=== PATIENT | female | born 1955 | race Caucasian/White ===

== ENCOUNTER → 2019-06-01 16:26 | Outpatient (CLI) | payer OTHER, SELFPAY ==
--- NOTE | ~2019-06-01 | XR_ITS ---
XR knee RT 3V 06/01/2019 17:45 INDICATION: Right knee pain PROCEDURE: 3 views right knee COMPARISON: No prior studies for comparison. FINDINGS: Fracture, dislocation or subluxation is not identified. No significant joint effusion. The soft tissues appear within normal limits. No foreign bodies are identified. IMPRESSION: 1: NO ACUTE BONE OR JOINT ABNORMALITY IDENTIFIED. Reviewed, dictated and finalized at location A. ECTOR METAL CAN
== END ==
PROVIDERS: PCP Internal Medicine; Visit Provider Internal Medicine
DX: M25.561 Pain in right knee (principal)
CPT/HCPCS: 73562

== ENCOUNTER 2019-06-02 01:05 | Day surgery (SDC) | payer OTHER, SELFPAY ==
[2019-06-01 16:23] VITALS: BMI 28.8
--- NOTE | 2019-06-02 08:38 | SUR.PREOP ---
ARRIVES AMBULATORY TO [facility] 4 W/ AT SIDE FOR SCHEDULED LHC W/ DR. LUNA FOR 1000. ORIENTED TO ROOM, PLAN OF CARE, PROCEDURE. QUESTIONS ANSWERED. ANXIOUS. REASSURANCE GIVEN. IV STARTED, LABS DRAWN AND SENT, VS OBTAINED, CONSENT SIGNED, GROIN PREP COMPLETED. PT. STATES SHE IS INTERESTED IN RADIAL APPROACH [facility]. DORCAS'S TEST COMPLETED BY SHIELA HOBSON RN USING R. UPPER EXTREMITY; STRONG RADIAL AND ULNAR PULSES PALPATED. WILL MONITOR.
[2019-06-02 09:00] VITALS: BP 145/87; PULSE 77; RESP 20; TEMP 36.8; O2SAT 99
[2019-06-02 09:11] LABS: Basophils Absolute Auto 0.1 K/mm3 (0.0-0.1); Basophils Percent Auto 0.6 % (0.2-1.2); Eosinophils Absolute Auto 0.1 K/mm3 (0-0.3); Eosinophils Percent Auto 1.5 % (0-4.4); Hematocrit 44.3 % (37.0-47.0); Hemoglobin 14.3 g/dL (12.0-15.0); Immature Granulocyte Absolute 0.07 K/mm3 (0.00-0.031); Immature Granulocyte Percent A 0.8 % (0-0.5); Lymphocytes Absolute Auto 2.49 K/mm3 (0.9-3.2); Lymphocytes Percent Auto 28.9 % (18.3-44.2); Mean Corpuscular HGB Conc 32.3 g/dl (32-36); Mean Corpuscular Hemoglobin 27.7 pg (26-34); Mean Corpuscular Volume 85.9 fl (80-100); Mean Platelet Volume 11.1 fl (7.4-10.4); Monocytes Absolute Auto 0.7 K/mm3 (0.1-0.6); Neutrophils Absolute Auto 5.2 K/mm3 (1.3-6.7); Neutrophils Percent Auto 60.2 % (45.5-73.1); Platelet Count Result 245 k/mm3 (150-375); Red Blood Count 5.16 M/mm3 (4.2-5.4); Red Cell Distribution Width 13.9 % (11.5-14.5); White Blood Count 8.6 K/mm3 (4.5-10.0)
[2019-06-02 09:22] LABS: Blood Urea Nitrogen 20 mg/dL (7-17); Calcium 9.9 mg/dL (8.4-10.2); Carbon Dioxide 29 mmol/L (22-30); Chloride 97 mmol/L (98-107); Estimated CRCL calculation 77 ml/min; Estimated Glomerular Filt Rate > 60; Glucose 120 mg/dL (65-105); Potassium 4.3 mmol/L (3.4-5.0); Sodium 135 mmol/L (137-145)
[2019-06-02 09:25] VITALS: BMI 28.3
--- NOTE | 2019-06-02 10:38 | WPDMODSED ---
Moderate Sedation Note-Pt Data Patient Data Allergies Allergy/AdvReac Type Severity Reaction Status Date / Time morphine Allergy Intermediate Migraine Verified 04/04/19 09:12 Home Medications Medication Instructions Recorded Confirmed Type lisinopril 10 mg tablet 10 mg PO DAILY #30 tablet 03/11/19 06/02/19 Rx cholecalciferol (vitamin D3) 400 unit PO BID 06/01/19 06/01/19 History Current Medications: Active Medications Sodium Chloride (Normal Saline Iv) 500 mls @ 100 mls/hr IV CONT .Q5H [facility] Sedation/Anesthesia: No previous sedation/anesthesia problems (including family history). [facility] Family History Family History Mother Hypertension, Onset Age: 84 Father Family history of Parkinson's disease Patient's father is Other Family history of arthritis Family history of cardiovascular disease Social History Social History Smoking status: Never smoker Second hand tobacco smoke exposure: No Smoking end date: 05/04/79 Alcohol intake: current Mod Sed Physical Exam Physical Exam Pre Procedural Exam: Normal: Appearance, Eyes, Ears, Nose, Neck, Throat, Airway, Lungs, Heart Size, Heart Rate, Heart Rhythm, Neuro Exam, Abdomen, Liver, Kidneys, Spleen, Breasts, Genitalia, Extremities and Skin Hours since solid foods: 8 Hours since liquid intake: 8 Internal Medicine - PN: Obj Da Vital Signs Vital Signs: Vital Signs - 24 hr 06/02/19 09:00 Temperature 36.8 C Pulse Rate 77 Respiratory Rate 20 Blood Pressure 145/87 H Pulse Oximetry 99 Meds/Results Medications: Active Medications Generic Name Dose Route Start Last Admin Trade Name Freq PRN Reason Stop Dose Admin Sodium Chloride 500 mls @ 100 mls/hr 06/02/19 06:00 Normal Saline Iv IV CONT .Q5H [facility] Labs CBC & Chem 7: 06/02/19 08:54 06/02/19 08:54 Labs: Laboratory Results - last 24 hr 06/02/19 06/02/19 08:54 08:54 WBC 8.6 RBC 5.16 Hgb 14.3 Hct 44.3 MCV 85.9 MCH 27.7 MCHC 32.3 RDW 13.9 Plt Count 245 MPV 11.1 H Immature Gran % (Auto) 0.8 H Neut % (Auto) 60.2 Lymph % (Auto) 28.9 [place] % (Auto) 8.0 Eos % (Auto) 1.5 Baso % (Auto) 0.6 Lymph # (Auto) 2.49 [place] # (Auto) 0.7 H Eos # (Auto) 0.1 Baso # (Auto) 0.1 Abs Immat Gran (auto) 0.07 H Absolute Neuts (auto) 5.2 Absolute Nucleated RBC 0.0 Nucleated RBC % 0.0 Sodium 135 L Potassium 4.3 Chloride 97 L Carbon Dioxide 29 BUN 20 H Creatinine 0.70 Estim Creat Clear Calc 77 Estimated GFR > 60 Glucose 120 H Calcium 9.9 ASA Classification/Sedation ASA Classification/Sedation ASA Class: I Emergent: No Risks: Risks, benefits and alternatives explained and patient/family accepted plan for sedation. Patient re-evaluated immediately prior to sedation.
--- NOTE | 2019-06-02 10:48 | P.PCNCC_ITS ---
Cardiac Cath Procedure Note Date of procedure:: 06/02/19 Performing physician:: Kathy Martínez MD Date of service 06/02/2019 Indication:: abnormal stress test Brief clinical history:: this 64-year-old female with past medical history of hypertension who had couple episodes of chest pain. She underwent stress testing that shows ischemia in the anterior wall and therefore was brought into the [facility] [place] to define the coronary anatomy and exclude coronary artery disease as possible etiology. Procedure Procedure performed:: 1-Moderate sedation that started at 1053 am and ended at 1132 am using 7 mg of Versed and c fentanyl. The registered nurse was Emilio House 2-Selective left and right coronary angiogram. Sedation/Medication given:: Moderate sedation. Access site:: Right common femoral artery. Estimated blood loss:: 10cc Procedure note:: After informed consent patient was brought in to [facility] [place] with the was draped and prepped in usual manner. Moderate sedation was given and the right wrist was infiltrated using 1% lidocaine. Six German sheath was obtained using classic Seldinger technique. a cocktail of 5 mg of verapamil and 200 mcg of nitroglycerin given through the radial artery sheath and 3000 IV heparin.Selective left coronary angiogram was done using JL3.5 catheter with the tip of the catheter placed in the left main coronary artery. selective right coronary angiogram was done using JR4 catheter the tip of the catheter placed in right artery. Findings:: 1- left coronary artery is a large artery that divides into large LAD, large circumflex artery. Left main is Free of disease. 2- left anterior descending artery is a large artery that runs and wraps around the apex. has minimal proximally. Gives rise to a medium-sized diagonal branch that looks. 3- leftcircumflex artery is a large artery and codominant And is free of disease. Mid segment gives rise to large OM1 branch that looks. Left PDA looks unremarkable. 4- right coronary artery is is large artery and codominant free disease 5- opening arterial pressure was 112/77 and closing pressure 100/80 Conclusion:: 1- minimal coronary irregularities. 2- false-positive stress test. Assessment and Plan Additional Plan continue risk factor modification for CAD
[2019-06-02 13:00] VITALS: BP 123/73; PULSE 83; RESP 14; O2SAT 100
[2019-06-02 13:12] VITALS: BP 123/73; PULSE 77; RESP 15; O2SAT 99
[2019-06-02 13:42] VITALS: BP 121/65; PULSE 74; RESP 15; O2SAT 99
[2019-06-02 14:00] VITALS: BP 133/78; PULSE 76; RESP 16; O2SAT 99
== END 2019-06-02 15:00 | disposition home or self-care (01) ==
PROVIDERS: PCP Internal Medicine; Visit Provider Internal Medicine Cardiovascular Disease
PROC: 4A023N7 Measurement of Cardiac Sampling and Pressure, Left Heart, Percutaneous Approach (ICD-10-PCS; CPT 93452; principal; 2019-06-02 10:00)
DX: R94.39 Abnormal result of other cardiovascular function study (principal); R07.9 Chest pain, unspecified; I10 Essential (primary) hypertension
CPT/HCPCS: 36415; 80048; 85025; 93458; C1769; C1887; C1894; J1644; J2250; J3010; J7040

== ENCOUNTER → 2019-07-08 16:15 | Outpatient (CLI) | payer OTHER, SELFPAY ==
--- NOTE | ~2019-07-08 | MR_ITS ---
EXAMINATION: MR knee RT wo con DATE: 07/08/2019 16:50 INDICATION: Right knee pain. TECHNIQUE: Magnetic resonance imaging (MRI) of the right knee was performed without intravenous contr ast. Sequences included axial PD-weighted FS FSE, coronal PD-weighted FSE and PD-weighted FS FSE, sag ittal PD-weighted FSE, and sagittal T2-weighted FS FSE. COMPARISON: Right knee radiographs 06/01/2019 FINDINGS: Medial compartment: Medial meniscus is normal. There is cartilage surface irregularity of tibial condyle. There is shallo w partial-thickness cartilage loss of femoral condyle involving the central and lateral articular dana face. There are tiny marginal osteophytes. Lateral compartment: Lateral meniscus is normal. There is shallow partial-thickness cartilage loss of tibial condyle invol ving the posterior and medial articular surface. Femoral cartilage is normal. There are tiny marginal osteophytes. Patellofemoral compartment: There is shallow partial-thickness cartilage loss of patellar medial and lateral facets and median ri dge. Trochlear cartilage is normal. Ligaments and tendons: Anterior and posterior cruciate ligaments are normal. There are changes of prior sprains of medial co llateral ligament and fibular collateral ligament characterized by thickening and increased signal in tensity proximally. There is mild patellar tendinopathy. Fluid: There is a small knee joint effusion. There is trace fluid in a Hobbs's cyst. There is mild prepatell ar and superficial infrapatellar bursitis. IMPRESSION: 1. Mild tricompartmental chondrosis. 2. Small knee joint effusion. Reviewed, dictated and finalized at location A.
== END ==
PROVIDERS: Visit Provider Physician Assistant Surgical
DX: M25.461 Effusion, right knee (principal)
CPT/HCPCS: 73721

== ENCOUNTER 2020-05-31 09:05 | Outpatient (CLI) | payer OTHER, SELFPAY ==
--- NOTE | ~2020-05-31 | MM_ITS ---
EXAMINATION: MM screening [facility] BI w sandra HISTORY: Screening TECHNIQUE: Craniocaudal and mediolateral oblique 3-D tomosynthesis images were obtained and synthetic 2-D images were generated. CAD analysis was submitted and interpreted. COMPARISON: Comparison to multiple prior studies sequentially, with oldest reviewed study dated 01/2017. BREAST PARENCHYMAL COMPOSITION: The breasts are heterogeneously dense, which may obscure small masses . FINDINGS: There is a cluster of indeterminate calcifications in the central aspect of the left breast . There is no mammographic evidence for malignancy in the right breast. IMPRESSION: 1. Clustered indeterminate calcifications central aspect of the left breast. 2. Magnification views are recommended. BI-RADS Category 0: Incomplete: Needs additional imaging evaluation. Reviewed, dictated and finalized at location A. ING MACHINE OPERATOR
== END 2020-05-31 09:06 | disposition home or self-care (01) ==
LOC: ANHIMG 09:12
PROVIDERS: PCP Internal Medicine; Visit Provider Advanced Practice Midwife
DX: Z12.31 Encounter for screening mammogram for malignant neoplasm of breast (principal); R92.8 Other abnormal and inconclusive findings on diagnostic imaging of breast
CPT/HCPCS: 77063; 77067

== ENCOUNTER → 2020-06-26 08:25 | Outpatient (CLI) | payer OTHER, SELFPAY ==
--- NOTE | ~2020-06-26 | MM_ITS ---
EXAMINATION: MM diagnostic mammo unilat LT HISTORY: Indeterminate left breast calcifications on screening mammogram TECHNIQUE: Additional images of the left breast were performed. CAD analysis was submitted and interp reted. COMPARISON: 05/23/2020, 05/12/2019, 06/22/2018, 05/20/2017 FINDINGS: There are grouped fine pleomorphic calcifications in the middle third of the central breast 6 cm from the nipple. No associated mass or architectural distortion is identified. IMPRESSION: 1. Suspicious left breast calcifications. 2. Stereotactic biopsy is recommended. BI-RADS category 4, suspicious findings. Reviewed, dictated and finalized at location A. UIT COURT JUDGE
== END ==
PROVIDERS: PCP Internal Medicine; Visit Provider Advanced Practice Midwife
DX: R92.8 Other abnormal and inconclusive findings on diagnostic imaging of breast (principal)
CPT/HCPCS: 77065

== ENCOUNTER 2021-11-18 09:17 | Outpatient (CLI) | payer OTHER, SELFPAY ==
--- NOTE | ~2021-11-18 | XR_ITS ---
XR hand RT min 3V DATE: 11/18/2021 09:31 INDICATION: Osteoarthritis with nodules located in the digits TECHNIQUE: 3 views COMPARISON: 08/04/2011 right hand FINDINGS: There is mild osteoarthritis at the first carpometacarpal, first, second and third metacarp ophalangeal, first interphalangeal and the distal interphalangeal joints, especially the fifth distal interphalangeal joint. No erosive change. No fracture or dislocation, periosteal reaction or bone destruction. No chondrocalcinosis. IMPRESSION: Polyarticular osteoarthritis Reviewed, dictated and finalized at location B.
== END 2021-11-18 09:18 | disposition home or self-care (01) ==
PROVIDERS: PCP Internal Medicine; Visit Provider Plastic Surgery
DX: M19.041 Primary osteoarthritis, right hand (principal)
CPT/HCPCS: 73130

== ENCOUNTER 2022-06-08 09:23 | Emergency (ER) | payer OTHER, SELFPAY ==
--- NOTE | ~2022-06-08 | XR_ITS ---
EXAMINATION: XR shoulder LT min 2V INDICATION: Left shoulder pain TECHNIQUE: Three views of the left shoulder are submitted. COMPARISON: 03/28/2017 FINDINGS: Normal alignment. No fracture. Glenohumeral and acromioclavicular joint spaces are normal. Soft tissues are unremarkable. IMPRESSION: 1. No acute osseous abnormality. Reviewed, dictated and finalized at location A. EMY EDUCATION DIRECTOR
[2022-06-08 09:36] VITALS: BP 137/78; PULSE 76; RESP 16; TEMP 36.4; O2SAT 100
--- NOTE | 2022-06-08 10:36 | ED.GENADULT ---
HPI - General Adult General Chief complaint: Extremity Injury, Upper Stated complaint: lt shoulder pain Time Seen by Provider: 06/08/22 10:30 Source: patient, RN notes reviewed and old records reviewed Mode of arrival: ambulatory Limitations: no limitations History of Present Illness HPI narrative: 67 year old female presents to express care with complaints of pain to her left shoulder since when she was pulling something out of her shed and felt a pop in her left shoulder. Patient reports that she has been applying biofreeze topical ointment to her left shouder for her discomfort. Patient has full ROM of her left shoulder with most discomfort in AC joint region, denies any radiation of pain into her left arm or any tingling or numbness to her left arm or hand. MD complaint: pain to lefr shoulder Onset (ago): day(s) (3-4) Location: left and upper extremity (shoulder) Severity scale (1-10): 3 Treatments prior to arrival: other (biofreeze) Related Data Home Medications Medication Instructions Recorded Confirmed cholecalciferol (vitamin D3) 10 400 unit PO BID 06/01/19 06/08/22 mcg (400 unit) capsule Allergies Allergy/AdvReac Type Severity Reaction Status Date / Time morphine Allergy Intermediate Migraine Verified 06/08/22 09:26 Review of Systems Review of Systems: CONSTITUTIONAL: Denies fever, chills, or sweats. EYES: Denies visual changes, redness, or discharge. ENT: Denies rhinorrhea, congestion, sore throat, or otalgia. CARDIOVASCULAR: Denies chest pain, palpitations, or edema. RESPIRATORY: Denies cough or dyspnea. GASTROINTESTINAL: Denies abdominal pain, nausea, vomiting, or diarrhea. GENITOURINARY: Denies dysuria or hematuria. SKIN: Denies rash or itching. MUSCULOSKELETAL: Denies back pain, positive for left shoulder joint pain, or myalgia. NEUROLOGIC: Denies headache, numbness, or weakness. PSYCHIATRIC: Denies anxiety or depression. All systems reviewed & are unremarkable except as noted in HPI and below PMFSH Past Medical History Medical History Elevated LDL cholesterol level Surgical History Surgical History History of surgical removal of ganglion cyst Family History Family History Mother Hypertension, Onset Age: 84 Father Family history of Parkinson's disease Patient's father is Other Family history of arthritis Family history of cardiovascular disease Social History Social History Smoking status: Never smoker Second hand tobacco smoke exposure: No Smoking end date: 05/04/79 Alcohol intake: current Current Housing: Decline to Answer Concerned About Future Housing: Decline to Answer Difficulty Paying Gas/Electric Bills: Decline to Answer Difficulty Paying for Meds: Decline to Answer Currently Unemployed: Decline to Answer Education: Decline to Answer Difficulty w/ Childcare or Family Care: Decline to Answer Comments At time of signature, agree with nursing past medical, surgical, social and family history. There is no relevant family history pertinent to the presenting complaint Exam Narrative: GENERAL: Well-appearing, well-nourished, and in no acute distress. HEAD: Normocephalic, atraumatic. EYES: PERRLA and EOMI. ENT: Nares clear, no rhinorrhea or epistaxis. Mucous membranes moist.TM's normal with good light reflex, throat pink with no swelling noted. NECK: Supple. no lymphadenopathy CHEST: Clear to auscultation. No respiratory distress.SAO2 100% on room air HEART: Regular rate and rhythm. No murmur heard. Normal peripheral pulses ABDOMEN: Soft, nontender, nondistended, normal active bowel sounds. EXTREMITIES: Normal range of motion. No edema. Pain reported to left shoulder with no radiation of pain down arm, p
== END 2022-06-08 10:50 | disposition home or self-care (01) ==
PROVIDERS: Emergency Provider Registered Nurse; PCP Internal Medicine
DX: S46.912A Strain of unspecified muscle, fascia and tendon at shoulder and upper arm level, left arm, initial encounter (principal); X50.0XXA Overexertion from strenuous movement or load, initial encounter; E78.00 Pure hypercholesterolemia, unspecified; Z87.891 Personal history of nicotine dependence
CPT/HCPCS: 73030; 99213; G0463

== ENCOUNTER 2022-11-21 08:48 | Outpatient (CLI) | payer MEDICARE, SELFPAY ==
--- NOTE | ~2022-11-21 | DEXA_ITS ---
Bone Density Report Name: JULIÁN KATZ Age: 67 Sex: Female Ethnicity: White Date of : 1955 Indication: postmenopausal; screening for osteoporosis; parental hip fracture; height loss; prior fracture; hysterectomy; Referring Provider: MARYSOL HODGE Study: Bone densitometry was performed. Exam Date: November 21, 2022 Accession number: [id number] Bone Density: Region BMD T-score Z-score Classification AP Spine(L1-L4) 0.890 -1.4 0.4 Osteopenia Femoral Neck (Left) 0.678 -1.5 0.0 Osteopenia Total Hip (Left) 0.878 -0.5 0.7 Normal Femoral Neck (Right) 0.697 -1.4 0.2 Osteopenia Total Hip (Right) 0.835 -0.9 0.4 Normal Total Hip Mean 0.856 -0.7 0.6 Normal World Health Organization criteria for BMD impression classify patients as: Normal (T-score at or above -1.0), Osteopenia (T-score between -1.0 and -2.5), or Osteoporosis (T-score at or below -2.5). 10-year Fracture Risk(1): Major Osteoporotic Fracture 26% Hip Fracture 1.8% Reported Risk Factors: [place] (), Neck BMD=0.678, BMI=30.0, previous fracture, parental fracture (1) FRAX(R) Version 3.08. Fracture probability calculated for an untreated patient. Fracture probability may be lower if the patient has received treatment. Clinical Information Provided by Patient: Has had a low trauma fracture Parent has had a hip fracture Has used the following medications: Calcium Has the following medical conditions: Hysterectomy Patient maximum height was 66 Menopause Age: 46 No regular weight bearing exercise Onset of menses at age 14 Number of children 2 Impression: The patient has low bone mass, based on the Left Femoral Neck T-score. The patient has an estimated ten-year risk of hip fracture of 1.8% and an estimated ten-year risk of major fracture of 26%, based on the WHO FRAX algorithm. The patient has risk factors, including: parental hip fracture, previous fracture. Discussion: BONE DENSITY IS LOW AT ONE OR MORE SKELETAL SITES. THE PATIENT'S BMD AND CLINICAL RISK FACTORS CONTRIBUTE TO THIS PATIENT'S INCREASED RISK OF FRACTURE. This patient's lowest T-score is low at one or more skeletal sites. It meets the World Health Organization's (WHO) criteria for ?low bone mass? (T-score between -1.0 and -2.5). The patient's 10-year risk of a major osteoporotic fracture as calculated by FRAX exceeds the threshold where pharmacological therapy is recommended by the National Osteoporosis Foundation (NOF). However, all treatment decisions require clinical judgment and consideration of individual patient factors, including patient preferences, comorbidities, previous drug use, risk factors not captured in the FRAX model (e.g., frailty, falls, vitamin D deficiency, increased bone turnover, interval significant decline in bone density
== END 2022-11-21 08:49 | disposition home or self-care (01) ==
LOC: ANHIMG 08:54
PROVIDERS: PCP Internal Medicine; Visit Provider Advanced Practice Midwife
DX: N95.1 Menopausal and female climacteric states (principal); M85.88 Other specified disorders of bone density and structure, other site; M85.852 Other specified disorders of bone density and structure, left thigh; M85.851 Other specified disorders of bone density and structure, right thigh
CPT/HCPCS: 77080

== ENCOUNTER 2023-01-15 14:13 | Outpatient (CLI) | payer MEDICARE, SELFPAY ==
--- NOTE | ~2023-01-15 | CT_ITS ---
EXAMINATION: CT BRAIN W/O DATE: 01/15/2023 14:45 INDICATION: Headache TECHNIQUE: Computed tomography (CT) of the head was performed without and with 100 cc Omnipaque 350 i ntravenous contrast. The dose-length product was 1210.67 mGy-cm. COMPARISON: No prior studies for comparison. FINDINGS: Normal brain parenchymal volume for age. Normal espinal-white differentiation. No acute intrac ranial hemorrhage, infarction, mass or mass effect. There are scattered mild periventricular and subc ortical white matter changes, most likely related to small vessel ischemic disease (microangiopathy). No ventriculomegaly or midline shift. Midline sagittal images demonstrate a normal corpus callosum, c raniovertebral junction and sella turcica. Basilar cisterns are patent. Paranasal sinuses and mastoids are pneumatized. No depressed skull fractures. No abnormal contrast en hancement. IMPRESSION: 1. No acute intracranial abnormality. Reviewed, dictated and finalized at location L.
[2023-01-15 14:38] LABS: Estimated Glomerular Filt Rate > 60
== END 2023-01-15 14:14 | disposition home or self-care (01) ==
PROVIDERS: PCP Internal Medicine; Visit Provider Internal Medicine
DX: R51.9 Headache, unspecified (principal)
CPT/HCPCS: 70470; Q9967

== ENCOUNTER 2023-02-11 10:13 | Outpatient (CLI) | payer MEDICARE, SELFPAY ==
--- NOTE | ~2023-02-11 | XR_ITS ---
Right Shoulder Technique: AP and axillary views were obtained. Clinical History: Pain Findings: No fracture or dislocation is seen. Osseous alignment is anatomic. The glenohumeral and acr omioclavicular joint spaces are preserved. Possible calcific tendinitis at the posterior infraspinatu s or teres minor tendon. Impression: Possible calcific tendinitis of the posterior infraspinatus or teres minor tendon. No fracture or dislocation. Reviewed, dictated and finalized at location . Impression: Possible calcific tendinitis of the posterior infraspinatus or teres minor tend on. No fracture or dislocation.
--- NOTE | ~2023-02-11 | XR_ITS ---
Right Shoulder Technique: AP and axillary views were obtained. Clinical History: Pain Findings: No fracture or dislocation is seen. Osseous alignment is anatomic. The glenohumeral and acr omioclavicular joint spaces are preserved. Soft tissues are unremarkable. Impression: Unremarkable right shoulder radiographs. Reviewed, dictated and finalized at [facility]. Impression: Unremarkable right shoulder radiographs.
--- NOTE | ~2023-02-11 | XR_ITS ---
Cervical Spine: AP, lateral, open-mouth views Clinical History: Pain Findings: The normal lordotic curve is maintained. No fracture or subluxation. There are mild to mode rate degenerative disc changes at the cervical spine. There is mild to moderate facet arthropathy thr oughout the cervical spine. Pre-vertebral soft tissues are unremarkable. Impression: Moderate degenerative spondylosis, as above. No fracture or subluxation. Reviewed, dictated and finalized at location . Impression: Moderate degenerative spondylosis, as above. No fracture or subluxation.
== END 2023-02-11 10:14 | disposition home or self-care (01) ==
PROVIDERS: PCP Internal Medicine; Visit Provider Internal Medicine
DX: M25.511 Pain in right shoulder (principal); M25.512 Pain in left shoulder; M47.892 Other spondylosis, cervical region
CPT/HCPCS: 72040; 73030

== ENCOUNTER 2023-03-02 02:25 | Observation (INO) | payer MEDICARE, SELFPAY ==
--- NOTE | ~2023-03-02 | CT_ITS ---
EXAMINATION: CTA chest PE protocol DATE: 03/02/2023 07:38 INDICATION: Chest pain. TECHNIQUE: Computed tomography angiography (CTA) of the chest was performed with 100 mL Omnipaque-350 intravenous contrast timed to evaluate the pulmonary arteries. Coronal maximum intensity projection 3D-reconstructions were created by the technologist. Automated exposure control and iterative reconst ruction technique were employed. The dose-length product was 500.92 mGy-cm. COMPARISON: Chest 2 views 11/30/2022 FINDINGS: There is a 3 mm nodule in right lung upper lobe, likely benign. There is mild atelectasis b ilaterally. No pleural effusion. The heart size is normal. No pericardial effusion. The gallbladder i s distended. There is a 2.1 cm mass in left adrenal gland. There is no pulmonary embolus. There is mi ld thoracic spondylosis. IMPRESSION: 1. No pulmonary embolus. 2. Gallbladder distention, which may be secondary to fasting or acute cholecystitis. Correlate with p hysical exam. 3. 2.1 cm left adrenal mass. In the absence of known malignancy, this finding is likely an adenoma. Reviewed, dictated and finalized at location E. IMPRESSION: 1. No pulmonary embolus. 2. Gallbladder distention, which may be secondary to fasting or acute cholecyst itis. Correlate with physical exam. 3. 2.1 cm left adrenal mass. In the absence of known malignancy, this finding i s likely an adenoma.
--- NOTE | ~2023-03-02 | XR_ITS ---
EXAMINATION: XR chest 2V DATE: 03/02/2023 03:09 INDICATION: Chest pain. TECHNIQUE: Frontal and lateral views of the chest were obtained. COMPARISON: Chest 2 views 07/06/2012 FINDINGS: There is mild atelectasis at left lung base. No pleural effusion or pneumothorax. The heart size is normal. There is old healed fracture of right sixth rib. IMPRESSION: 1. Mild atelectasis at left lung base. Reviewed, dictated and finalized at location E.
--- NOTE | 2023-03-02 02:25 | ECG_ITS ---
Measurements Intervals [place] Rate: 76 P: 35 TX: 146 QRS: 14 QRSD: 86 T: 30 QT: 350 QTc: 395 Interpretive Statements SINUS RHYTHM LOW QRS VOLTAGE IN PRECORDIAL LEADS [QRS DEFLECTION < 1.0 mV IN CHEST LEADS] ABNORMAL ECG NO PREVIOUS ECG AVAILABLE FOR COMPARISON Electronically Signed On 03-02-2023 8:51:47 CDT by Gage Vasquez M.D.
[2023-03-02 02:32] VITALS: BP 140/118; PULSE 84; RESP 20; TEMP 36.2; O2SAT 100
[2023-03-02] MEDS: ASPIRIN 81 MG CHEWABLE TABLET 324 MG PO (02:37)
[2023-03-02 02:53] LABS: Basophils Absolute Auto 0.1 K/mm3 (0.0-0.1); Basophils Percent Auto 0.7 % (0.2-1.2); Eosinophils Absolute Auto 0.2 K/mm3 (0-0.3); Eosinophils Percent Auto 2.1 % (0-4.4); Hematocrit 42.1 % (37.0-47.0); Hemoglobin 13.5 g/dL (12.0-15.0); Immature Granulocyte Absolute 0.02 K/mm3 (0.00-0.031); Immature Granulocyte Percent A 0.2 % (0-0.5); Lymphocytes Absolute Auto 3.46 K/mm3 (0.9-3.2); Lymphocytes Percent Auto 40.8 % (18.3-44.2); Mean Corpuscular HGB Conc 32.1 g/dl (32-36); Mean Corpuscular Hemoglobin 28.1 pg (26-34); Mean Corpuscular Volume 87.5 fl (80-100); Mean Platelet Volume 10.9 fl (7.4-10.4); Monocytes Absolute Auto 0.7 K/mm3 (0.1-0.6); Monocytes Percent Auto 8.4 % (2.6-8.5); Neutrophils Absolute Auto 4.1 K/mm3 (1.3-6.7); Neutrophils Percent Auto 47.8 % (45.5-73.1); Platelet Count Result 255 k/mm3 (150-375); Red Blood Count 4.81 M/mm3 (4.2-5.4); Red Cell Distribution Width 13.3 % (11.5-14.5); White Blood Count 8.5 K/mm3 (4.5-10.0)
[2023-03-02 03:03] LABS: Alanine Aminotransferase 23 U/L (6-35); Albumin Level 4.6 g/dL (3.5-5.1); Alkaline Phosphatase 61 U/L (38-126); Anion Gap 6 mmol/L (8-16); Aspartate Amino Transferase 22 U/L (14-36); Bilirubin,Total 1.1 mg/dL (0.2-1.3); Blood Urea Nitrogen 24 mg/dL (7-17); Carbon Dioxide 31 mmol/L (22-30); Chloride 101 mmol/L (98-107); Estimated CRCL calculation 73 ml/min; Estimated Glomerular Filt Rate > 60; Glucose 128 mg/dL (65-110); Lipase 169 U/L (23-300); Potassium 3.8 mmol/L (3.4-5.0); Sodium 138 mmol/L (137-145)
[2023-03-02 03:04] LABS: INR 0.9; Partial Thromboplastin Time 25.8 SECONDS (22.3-36.8); Prothrombin Time 12.7 Seconds (11.1-14.7)
[2023-03-02 03:14] LABS: Troponin I < 0.012 ng/mL (0.000-0.034)
--- NOTE | 2023-03-02 03:34 | ED.CHESTPAIN ---
HPI - Chest Pain General Chief Complaint: Chest Pain <Alida Jessica MD - Last Filed: 03/02/23 05:57> Stated Complaint: Chest pain <Alida Jessica MD - Last Filed: 03/02/23 05:57> Time Seen by Provider: 03/02/23 03:12 <Alida Jessica MD - Last Filed: 03/02/23 05:57> History of Present Illness HPI narrative: Patient presents the emergency department with a sharp stabbing mid chest pain. Patient had some chest discomfort yesterday. Tonight this chest pain woke her up from sleep. It has been uncomfortable since. Slight improvement but still very present. Denies all other positive review of systems including lightheadedness shortness of breath nausea or vomiting. Recently started on metformin Lipitor and Fosamax. However she had leg cramps and was taken off all 3. Denies history of cardiac problems. She is accompanied by her <Alida Jessica MD - Last Filed: 03/02/23 05:57> Related Data Home Medications: Home Medications Medication Instructions Recorded Confirmed cholecalciferol (vitamin D3) 1,250 1,250 mcg PO WEEKLY 02/04/23 mcg (50,000 unit) tablet <Alida Jessica MD - Last Filed: 03/02/23 05:57> Allergies/Adverse Reactions: Allergies Allergy/AdvReac Type Severity Reaction Status Date / Time morphine Allergy Intermediate Migraine Verified 03/02/23 02:35 cyclobenzaprine AdvReac Intermediate Other Verified 03/02/23 02:35 [From Flexeril] flexeril Allergy Mild Other Uncoded 02/04/23 10:29 <Alida Jessica MD - Last Filed: 03/02/23 05:57> Review of Systems Review of Systems: Negative except what is documented in the HPI <Alida Jessica MD - Last Filed: 03/02/23 05:57> [facility] Past Medical History Medical History: Medical History Elevated LDL cholesterol level Essential (primary) hypertension Normal colonoscopy <Alida Jessica MD - Last Filed: 03/02/23 05:57> Surgical History Surgical History: Surgical History H/O LEEP History of hysterectomy History of surgical removal of ganglion cyst <Alida Jessica MD - Last Filed: 03/02/23 05:57> Family History Family History: Family History Mother Hypertension, Onset Age: 84 Father Family history of Parkinson's disease Patient's father is Non-Hodgkin lymphoma Sibling Esophageal cancer Hypertension Heart disease Other Family history of arthritis Family history of cardiovascular disease <Alida Jessica MD - Last Filed: 03/02/23 05:57> Social History Social History: Social History Smoking status: Never smoker Second hand tobacco smoke exposure: No Alcohol intake: current Current Housing: Decline to Answer Concerned About Future Housing: Decline to Answer Difficulty Paying Gas/Electric Bills: Decline to Answer Difficulty Paying for Meds: Decline to Answer Currently Unemployed: Decline to Answer Education: Decline to Answer Difficulty w/ Childcare or Family Care: Decline to Answer <Alida Jessica MD - Last Filed: 03/02/23 05:57> Exam Narrative: GENERAL: Well-appearing, well-nourished, and in no acute distress. Holding chest HEAD: Normocephalic, atraumatic. EYES: PERRLA and EOMI. ENT: Nares clear, no rhinorrhea or epistaxis. Mucous membranes moist. NECK: Supple. CHEST: Clear to auscultation. No respiratory distress. HEART: Regular rate and rhythm. ABDOMEN: Soft, nontender, nondistended. EXTREMITIES: Normal range of motion. No edema. SKIN: Warm, dry, no rash. NEURO: No focal deficits. Alert and oriented x3. PSYCH: Normal mood and affect. <Alida Jessica MD - Last Filed: 03/02/23 05:57> Course Course Emergency Course:
[2023-03-02] MEDS: NITROGLYCERIN SL 0.4 MG TABLET SUBLINGUAL (03:51)
[2023-03-02] MEDS: ACETAMINOPHEN 325 MG TABLET 650 MG PO (03:51)
[2023-03-02 04:07] VITALS: BP 108/70; PULSE 72; RESP 15; O2SAT 94
[2023-03-02] MEDS: BELLADONNA ALK/PHENOB ELIX 10 ML, MAG HYDROX/ALUMINUM HYD/SIMETH 30 ML, LIDOCAINE HCL 2... PO (05:03)
[2023-03-02 05:57] LABS: Troponin I < 0.012 ng/mL (0.000-0.034)
[2023-03-02 07:43] VITALS: BP 163/69; PULSE 81; PULSE 85; RESP 15; O2SAT 100
[2023-03-02 08:38] LABS: Troponin I < 0.012 ng/mL (0.000-0.034)
[2023-03-02 12:59] LABS: Glucose Point of Care 113 mg/dl (65-105)
[2023-03-02 13:24] VITALS: BP 116/82; PULSE 69; RESP 15; O2SAT 100
--- NOTE | 2023-03-02 15:02 | PM.CNCAR ---
Assessment and Plan Assessment and plan (1) Chest pain: Qualifiers: Chest pain type: unspecified Qualified Code(s): R07.9 - Chest pain, unspecified Code(s): R07.9 - Chest pain, unspecified Status: Acute Plan This is a 67-year-old woman presenting in the middle of the night with the chest pain incident that is clinically very atypical of angina. Acute coronary syndrome/TN has been ruled out by ECG and 3- troponin levels. The patient is a comfortable at this time. Her symptoms by her report were alleviated with her GI cocktail that she was given last night in the ED. Her history also includes and negative coronary angiogram that was done in 2019 by my partner. This patient is therefore at least at that time known not to have coronary artery disease. At this point I do not believe any further ischemia workup needs to be done from my perspective she can be discharged for follow-up with her PCP. Nnamdi Roldan MD [facility] History of Present Illness History of Present Illness Consult date/time: 03/02/23 15:02 Reason For Visit: Chest pain Narrative: This is a 67-year-old woman I am seeing at the request of the hospitalist and ER staff because of chest pain. She is unknown to me prior to this consultation and has previously been seen and evaluated by my partner, Dr. Martínez. Patient states that she has been enjoying relatively good health when she was awakened in the middle of the night at about 1:00 a.m. this past morning with chest pain. She sat up in bed and tried to relax the symptoms did not resolve she awakened her and he drove to the emergency room in the middle of the night for evaluation. The pain was radiating sometimes to the midthoracic area in her back. No associated shortness of breath diaphoresis nausea or vomiting. She received some aspirin and nitrates which did not do much in way of alleviating the pain. As her ER evaluation and management was going on through the night she received also a GI cocktail after about 3 or 4 hours which essentially alleviated the symptom. Her electrocardiogram is unremarkable. She has 3 levels of troponins that were checked in the emergency room all of which are within normal ranges well. The patient was previously referred to our office because of chest pain and she did have some atypical sounding chest pain. She had a stress test done in the office a couple of years ago for which was minimally abnormal this prompted an angiogram which was done that was unremarkable. After her normal angiogram she was told to follow-up in the office with Dr. Martínez on an as needed basis. She does not have any exertional symptomatology she denies any palpitations orthopnea PND or edema. She feels well this afternoon and offers no other complaints. Review of Systems Constitutional: Constitutional: Reports no additional constitutional complaints Eyes: Eyes: Reports no additional eye complaints ENT: Reports system reviewed and no additional complaints, except as documented Cardiovascular: Cardiovascular: Reports as per HPI Respiratory: Respiratory: Reports no additional respiratory complaints Gastrointestinal: Gastrointestinal: Reports as per HPI Genitourinary: Genitourinary: Reports no additional female genitourinary complaints Musculoskeletal: Musculoskeletal: Reports no additional musculoskeletal complaints Integumentary/Breasts: Skin/Breast: Reports system reviewed and no additional complaints, except as docu Neurologic: Reports system reviewed and no additional complaints, except as documented Endocrine: Endocrine: Reports no additional endocrine complaints Hematologic/Lymphatic: Hematologic/Lymphatic: Reports no additional hematologic/lymphatic complaints Allergic/Immunologic: Allergic/Immunologic: Reports no additional allergic/immunologic complaints [facility] Past Medical History Medical History [employer]
--- NOTE | 2023-03-02 15:56 | PM.SD2 ---
Same Day Admit/Disch: HPI History of Present Illness Chief complaint: Chest pain Narrative: This is a very pleasant 67-year-old female with diet-controlled type 2 diabetes mellitus, hypertension, and hyperlipidemia who presented to the emergency department early this morning via private vehicle from home for evaluation of chest pain. The patient provides the following history. Yesterday afternoon while going through some paperwork she developed an almost stabbing like discomfort in the mid chest region which was self-limiting and lasted only for few minutes. She has had similar episodes in the past which she had always talked up to possible indigestion though she does not typically suffer from the same. She had crab legs for dinner and went to bed in her usual state of health. She was wakened from sleep at about 01:00 with pain in the mid chest which she has a hard time describing but she indicates that it was an intense ?hard pain.? After a period of time she started to feel the discomfort radiate to the midthoracic region and she came in for evaluation. She denies associated sweats, lightheadedness, dizziness, nausea, vomiting, and shortness of breath. She received aspirin and nitrates in the emergency department without much benefit. She then received a GI cocktail which essentially alleviated all symptoms. Her initial troponin was negative and EKG showed no acute ST segment changes. She was admitted in this setting for cardiac rule out. She has known history of coronary artery disease and in fact she had a cardiac catheterization in May 2019 following an abnormal stress test and her coronaries were reportedly clear at that time. [facility] Past Medical History Medical History (Updated 03/02/23 @ 23:53 by Tasha Bunn PA-C) Diet-controlled type 2 diabetes mellitus Hyperlipidemia Hypertension Normal colonoscopy Surgical History Surgical History (Updated 03/02/23 @ 23:53 by Tasha Bunn PA-C) History of hysterectomy History of loop electrosurgical excision procedure (LEEP) History of surgical removal of ganglion cyst Family History Family History Mother Hypertension, Onset Age: 84 Father Family history of Parkinson's disease Patient's father is Non-Hodgkin lymphoma Sibling Esophageal cancer Hypertension Heart disease Other Family history of arthritis Family history of cardiovascular disease Social History Social History (Updated 03/02/23 @ 23:54 by Tasha Bunn PA-C) Social History: Surrogate medical decision maker: Leonel Corcoran, spouse. Code status: Full code. Smoking status: Former smoker Second hand tobacco smoke exposure: No Alcohol intake: current Substance use: never Substance use type: does not use Lack of Transportation: No Lack of Food: Never True Current Housing: I Have Housing Concerned About Future Housing: No Difficulty Paying Gas/Electric Bills: No Difficulty Paying for Meds: No Currently Unemployed: No Education: High School Diploma/GED Difficulty w/ Childcare or Family Care: No Additional living arrangements comments: Lives with spouse in [place]. Additional occupation/education comments: Retired. Spiritual care concerns: No Same Day Admit/Disch: Med Pre-admit Medications Home Medications Medication Instructions Recorded Confirmed Type lisinopril 10 mg tablet 10 mg PO DAILY #90 tabs 01/13/23 Rx alendronate 70 mg tablet (Fosamax) 70 mg PO WEEKLY #14 tabs 02/04/23 02/04/23 Rx atorvastatin 20 mg tablet (Lipitor) 20 mg PO DAILY #90 tabs 02/04/23 02/04/23 Rx cholecalciferol (vitamin D3) 1,250 1,250 mcg PO WEEKLY 02/04/23 History mcg (50,000 unit) tablet metformin 500 mg tablet 500 mg PO DAILY #90 tabs 02/04/23 02/04/23 Rx blood sugar diagnostic (Accu-Chek #100 ea 02/13/23 02/13/23 Rx Guide test strips) blood-glucose meter (Accu-Chek #1 ea 02/13
[2023-03-02 16:05] VITALS: BMI 28.0
== END 2023-03-02 16:59 | disposition home or self-care (01) ==
LOC: ANHED 08:46 → ANHIMU 09:25
PROVIDERS: Emergency Medicine; Admitting Provider Internal Medicine; Emergency Provider Preventive Medicine Aerospace Medicine; PCP Internal Medicine; Visit Provider Internal Medicine
DX: R07.9 Chest pain, unspecified (principal); J98.11 Atelectasis; R94.31 Abnormal electrocardiogram [ECG] [EKG]; K82.8 Other specified diseases of gallbladder; D35.00 Benign neoplasm of unspecified adrenal gland; K21.9 Gastro-esophageal reflux disease without esophagitis; I10 Essential (primary) hypertension; E11.9 Type 2 diabetes mellitus without complications; E78.5 Hyperlipidemia, unspecified; Z87.891 Personal history of nicotine dependence; F10.90 Alcohol use, unspecified, uncomplicated; Z79.84 Long term (current) use of oral hypoglycemic drugs; Z79.899 Other long term (current) drug therapy
CPT/HCPCS: 36415; 71046; 71275; 80053; 82948; 83690; 84484; 85025; 85610; 85730; 93005; 99285; A9270; G0378; Q9967

== ENCOUNTER 2023-03-12 07:35 | Outpatient (CLI) | payer MEDICARE, SELFPAY ==
--- NOTE | ~2023-03-12 | MR_ITS ---
EXAMINATION: MR abdomen wo/w con DATE: 03/12/2023 08:34 INDICATION: Adrenal nodule TECHNIQUE: Magnetic resonance imaging (MRI) of the abdomen was performed without and with 16 mL Multi derek intravenous contrast. Sequences included coronal T2-weighted SS-FSE, coronal and axial FS 2D-F IESTA, axial STIR FSE, axial T2-weighted SS-FSE, axial T2-weighted FS SS-FSE, axial diffusion-weighte d SE, axial dual-echo T1-weighted FSPGR, and axial and coronal T1-weighted LAVA. Postcontrast axial T 1-weighted LAVA images were obtained in a time course. Postcontrast coronal T1-weighted LAVA images w ere obtained. COMPARISON: None. FINDINGS: Heart size is normal. No pericardial or pleural effusion. Multiple gallstones within the normal-appea ring gallbladder with no wall thickening or pericholecystic inflammatory stranding to suggest acute c holecystitis. Diffuse hepatic steatosis with mild signal dropout on opposed phase imaging. 2.1 cm int racellular lipid-containing left adrenal adenoma with 5 fold drop in signal on opposed phase imaging. Right adrenal gland, spleen, pancreas and bilateral kidneys are normal. Bowels including the appendi x are normal. No pathologically enlarged abdominal or upper pelvic lymphadenopathy. T1 and T2 hyperin tense fat saturating hemangioma at T10. Severe disc height loss with fibrofatty degenerative endplate changes at L5-S1. Otherwise mild spondylosis in the more cephalad lumbar and lower thoracic spine. IMPRESSION: 1. 2.1 cm left adrenal adenoma. Reviewed, dictated and finalized at location A. ER HAND
== END 2023-03-12 07:36 | disposition home or self-care (01) ==
LOC: ANHIMG 07:38
PROVIDERS: PCP Internal Medicine; Visit Provider Physician Assistant
DX: E27.8 Other specified disorders of adrenal gland (principal); D35.02 Benign neoplasm of left adrenal gland
CPT/HCPCS: 74183; A9577

== ENCOUNTER 2023-04-01 14:30 | Outpatient (RCR) | payer MEDICARE, SELFPAY ==
[2023-03-31 08:07] VITALS: BMI 28.5
[2023-03-31 08:21] VITALS: BMI 28.5
== END 2023-05-18 12:36 | disposition home or self-care (01) ==
LOC: ANHDMC 14:30
PROVIDERS: PCP Internal Medicine; Visit Provider Internal Medicine
DX: E11.65 Type 2 diabetes mellitus with hyperglycemia (principal); Z71.89 Other specified counseling; Z71.3 Dietary counseling and surveillance
CPT/HCPCS: 97802; G0108; G0109

== ENCOUNTER 2023-05-27 07:23 | Day surgery (SDC) | payer MEDICARE, SELFPAY ==
[2023-05-11 13:18] VITALS: BMI 26.6
[2023-05-27 08:58] VITALS: BP 139/86; PULSE 84; RESP 16; TEMP 36.5; O2SAT 97; BMI 27.1
--- NOTE | 2023-05-27 09:11 | WPDANESEPPF ---
Anes - Initial Pre Proc Eval Procedure: Operation Date: 05/27/23 10:00 Proposed Procedures p Colonoscopy - Paulino Infante MD Date/Time: 05/27/23 09:11 Surgeon: Paulino Infante MD Pre Op Diagnosis: History of Colon Polyps Patient Data Age: 68 Gender: F Height: 1.68 m Weight: 76.1 kg Last Vital Signs Temp 36.5 C 05/27/23 08:58 Pulse 84 05/27/23 08:58 Resp 16 05/27/23 08:58 BP 139/86 05/27/23 08:58 Pulse Ox 97 05/27/23 08:58 O2 Del Method Room Air 05/27/23 08:58 Allergies Allergy/AdvReac Type Severity Reaction Status Date / Time cyclobenzaprine AdvReac Intermediate Other Verified 05/27/23 08:50 [From Flexeril] morphine AdvReac Intermediate Migraine Verified 05/27/23 08:50 Home Medications Medication Instructions Recorded Confirmed Type lancets 30 gauge (CareSens Lancets) #200 ea 02/13/23 02/13/23 Rx blood-glucose meter (Accu-Chek #1 ea 03/17/23 Rx Guide Glucose Meter) lisinopril 10 mg tablet See Rx Instructions .Route 04/18/23 05/27/23 Rx .COMPLEX #100 tabs pravastatin 40 mg tablet 40 mg PO DAILY #90 tabs 04/21/23 05/27/23 Rx alendronate 70 mg tablet See Rx Instructions .Route 05/06/23 05/27/23 Rx .COMPLEX #14 tabs calcium carbonate 600 mg calcium 600 mg PO DAILY 05/08/23 05/27/23 History (1,500 mg) tablet (Calcium) cholecalciferol (vitamin D3) 50 50 mcg PO BID 05/08/23 05/27/23 History mcg (2,000 unit) capsule blood sugar diagnostic (Accu-Chek #400 ea 05/13/23 Rx Guide test strips) lancets 32 gauge (Easy Touch #400 ea 05/13/23 Rx Safety Lancets) Patient hx anesthesia problems: none Family hx anesthesia problems: none Results Review: All pre-operative results and documents have been reviewed as part of the pre-operative evaluation. [facility] Past Medical History Medical History Diet-controlled type 2 diabetes mellitus Hyperlipidemia Hypertension Normal colonoscopy Surgical History Surgical History History of hysterectomy History of loop electrosurgical excision procedure (LEEP) History of surgical removal of ganglion cyst Family History Family History Mother Hypertension, Onset Age: 84 Father Family history of Parkinson's disease Patient's father is Non-Hodgkin lymphoma Sibling Esophageal cancer Hypertension Heart disease Other Family history of arthritis Family history of cardiovascular disease Social History Social History Social History: Surrogate medical decision maker: Leonel Corcoran, spouse. Code status: Full code. Smoking status: Never smoker Second hand tobacco smoke exposure: No Alcohol intake: current Alcohol use details: states maybe 1x per month Substance use: never Substance use type: does not use Lack of Transportation: No Lack of Food: Never True Current Housing: I Have Housing Concerned About Future Housing: No Difficulty Paying Gas/Electric Bills: No Difficulty Paying for Meds: No Currently Unemployed: No Education: High School Diploma/GED Difficulty w/ Childcare or Family Care: No Living arrangements: with family Additional living arrangements comments: Lives with spouse in [place]. Additional occupation/education comments: Retired. Spiritual care concerns: No Anes - Eval Final PreProcedure Day of Procedure 05/27/23 09:11 Patient weight: overweight Heart: regular rate and rhythm Lungs: clear to auscultation Airway: Mallampati scale class II Neurological: alert and oriented Last oral intake: >/= 8 hours ASA classification: II Emergent: no Anesthetic plan: proceed Anesthesia type and monitoring: general GIVS and standard monitoring Results Review: All pre-operative results and documents have been
[2023-05-27] MEDS: LACTATED RINGERS 1,000 ML 150 ML IV CONT (09:12)
[2023-05-27 09:16] LABS: Glucose Point of Care 104 mg/dl (65-105)
--- NOTE | 2023-05-27 09:53 | PM.HPGS ---
History of Present Illness History of Present Illness Consent: Risks, benefits, and alternatives have been discussed and questions answered. Patient agrees to proceed with procedure. Chief complaint: History of Colon Polyps Narrative: Maia Corcoran is a 68 year old female presents for screening colonoscopy. Patient has a history of colon polyps 5 years ago. Patient's current weight appetite and bowel movements are normal. She denies abdominal pain. Patient has had no bleeding. Family history is noncontributory. Review of Systems Review of Systems: Review of systems noncontributory. [facility], [facility] Past Medical History Medical History Diet-controlled type 2 diabetes mellitus Hyperlipidemia Hypertension Normal colonoscopy Surgical History Surgical History History of hysterectomy History of loop electrosurgical excision procedure (LEEP) History of surgical removal of ganglion cyst Family History Family History Mother Hypertension, Onset Age: 84 Father Family history of Parkinson's disease Patient's father is Non-Hodgkin lymphoma Sibling Esophageal cancer Hypertension Heart disease Other Family history of arthritis Family history of cardiovascular disease Social History Social History Social History: Surrogate medical decision maker: Leonel Corcoran, spouse. Code status: Full code. Smoking status: Never smoker Second hand tobacco smoke exposure: No Alcohol intake: current Alcohol use details: states maybe 1x per month Substance use: never Substance use type: does not use Lack of Transportation: No Lack of Food: Never True Current Housing: I Have Housing Concerned About Future Housing: No Difficulty Paying Gas/Electric Bills: No Difficulty Paying for Meds: No Currently Unemployed: No Education: High School Diploma/GED Difficulty w/ Childcare or Family Care: No Living arrangements: with family Additional living arrangements comments: Lives with spouse in [place]. Additional occupation/education comments: Retired. Spiritual care concerns: No Meds Home Medications and Allergies Home Medications Medication Instructions Recorded Confirmed Type lancets 30 gauge (CareSens Lancets) #200 ea 02/13/23 02/13/23 Rx blood-glucose meter (Accu-Chek #1 ea 03/17/23 Rx Guide Glucose Meter) lisinopril 10 mg tablet See Rx Instructions .Route 04/18/23 05/27/23 Rx .COMPLEX #100 tabs pravastatin 40 mg tablet 40 mg PO DAILY #90 tabs 04/21/23 05/27/23 Rx alendronate 70 mg tablet See Rx Instructions .Route 05/06/23 05/27/23 Rx .COMPLEX #14 tabs calcium carbonate 600 mg calcium 600 mg PO DAILY 05/08/23 05/27/23 History (1,500 mg) tablet (Calcium) cholecalciferol (vitamin D3) 50 50 mcg PO BID 05/08/23 05/27/23 History mcg (2,000 unit) capsule blood sugar diagnostic (Accu-Chek #400 ea 05/13/23 Rx Guide test strips) lancets 32 gauge (Easy Touch #400 ea 05/13/23 Rx Safety Lancets) Allergies Allergy/AdvReac Type Severity Reaction Status Date / Time cyclobenzaprine AdvReac Intermediate Other Verified 05/27/23 08:50 [From Flexeril] morphine AdvReac Intermediate Migraine Verified 05/27/23 08:50 Vital Signs Vital Signs - 24 hr 05/27/23 08:58 Temperature 97.7 F Pulse Rate 84 Respiratory Rate 16 Blood Pressure 139/86 Pulse Oximetry 97 Oxygen Delivery Room Air Exam Narrative: Physical exam reveals patient to be alert. Vital signs stable. HEENT exam is unremarkable. Patient is anicteric. Lungs are clear to auscultation and percussion. Is without murmur or extra sounds. Abdomen bowel sounds are present soft nontender with no organomegaly. Digital external rectal exam normal. A
[2023-05-27 10:27] VITALS: BP 119/72; PULSE 85; RESP 20; O2SAT 95
[2023-05-27 10:37] VITALS: BP 125/71; PULSE 82; RESP 18; O2SAT 94
--- NOTE | 2023-05-27 10:45 | WPDANESPN ---
Anes - Prog Note Post-Op Date/Time: 05/27/23 10:45 Cardiovascular status: normal Respiratory status: normal Airway patency: baseline Mental status: baseline Post-Op hydration status: normal Vital Signs: Last Vital Signs Temp 36.5 C 05/27/23 08:58 Pulse 82 05/27/23 10:37 Resp 18 05/27/23 10:37 BP 125/71 05/27/23 10:37 Pulse Ox 94 05/27/23 10:37 O2 Del Method Room Air 05/27/23 10:37 Pain Score (VAS): 0/10 I/O: Intake & Output 05/26/23 05/27/23 05/27/23 23:59 07:59 15:59 Intake Total 700 Balance 700 05/27/23 09:11 POC Capillary Glucose 104 Patient Feedback: Patient satisfied with anesthetic care.
[2023-05-27 10:47] VITALS: BP 134/79; PULSE 74; RESP 18; O2SAT 99
== END 2023-05-27 11:17 | disposition home or self-care (01) ==
PROVIDERS: PCP Internal Medicine; Visit Provider Internal Medicine Gastroenterology
PROC: 0DJD8ZZ Inspection of Lower Intestinal Tract, Via Natural or Artificial Opening Endoscopic (ICD-10-PCS; CPT 45378; principal; 2023-05-27 10:00)
DX: Z86.010 Personal history of colon polyps (principal); K64.8 Other hemorrhoids
CPT/HCPCS: 45378

== ENCOUNTER 2023-06-02 09:26 | Outpatient (RCR) | payer MEDICARE, SELFPAY ==
[2023-06-02 09:52] VITALS: BMI 27.8
[2023-06-02 09:53] VITALS: BMI 27.8
== END 2023-08-27 13:59 | disposition home or self-care (01) ==
LOC: ANHDMC 09:26
PROVIDERS: PCP Internal Medicine; Visit Provider Internal Medicine
DX: E11.65 Type 2 diabetes mellitus with hyperglycemia (principal); Z71.3 Dietary counseling and surveillance
CPT/HCPCS: 97803

== ENCOUNTER 2023-06-15 11:32 | Outpatient (CLI) | payer MEDICARE, SELFPAY ==
[2023-06-15 12:14] LABS: Alanine Aminotransferase 23 U/L (6-35); Aspartate Amino Transferase 34 U/L (14-36)
== END 2023-06-15 11:33 | disposition home or self-care (01) ==
PROVIDERS: PCP Internal Medicine; Visit Provider Podiatrist Foot & Ankle Surgery
DX: B35.1 Tinea unguium (principal)
CPT/HCPCS: 36415; 84450; 84460

== ENCOUNTER 2023-08-21 10:13 | Outpatient (CLI) | payer MEDICARE, SELFPAY | END 2023-08-21 10:14 | disposition home or self-care (01) | LOC: ANHIMG 10:16 | PROVIDERS: PCP Internal Medicine; Visit Provider Internal Medicine | DX: M79.673 Pain in unspecified foot (principal) | CPT/HCPCS: 73630 ==

== ENCOUNTER 2023-09-07 10:09 | Outpatient (CLI) | payer MEDICARE, SELFPAY ==
[2023-09-07 10:59] LABS: Alanine Aminotransferase 18 U/L (6-35); Aspartate Amino Transferase 21 U/L (14-36)
== END 2023-09-07 10:10 | disposition home or self-care (01) ==
PROVIDERS: PCP Internal Medicine; Visit Provider Podiatrist Foot & Ankle Surgery
DX: B35.1 Tinea unguium (principal)
CPT/HCPCS: 36415; 84450; 84460

== ENCOUNTER 2023-12-07 09:51 | Outpatient (CLI) | payer MEDICARE, SELFPAY ==
[2023-12-07 10:46] LABS: Alanine Aminotransferase 24 U/L (6-35); Aspartate Amino Transferase 23 U/L (14-36)
== END 2023-12-07 09:52 | disposition home or self-care (01) ==
LOC: ANHLAB 09:53
PROVIDERS: PCP Internal Medicine; Visit Provider Podiatrist Foot & Ankle Surgery
DX: B35.1 Tinea unguium (principal)
CPT/HCPCS: 36415; 84450; 84460

== ENCOUNTER 2024-03-08 10:50 | Outpatient (CLI) | payer MEDICARE, SELFPAY ==
[2024-03-08 12:06] LABS: Alanine Aminotransferase 18 U/L (6-35); Aspartate Amino Transferase 26 U/L (14-36)
== END 2024-03-08 10:51 | disposition home or self-care (01) ==
PROVIDERS: PCP Physician Assistant; Visit Provider Podiatrist Foot & Ankle Surgery
DX: B35.1 Tinea unguium (principal)
CPT/HCPCS: 36415; 84450; 84460

== ENCOUNTER 2024-05-15 10:39 | Emergency (ER) | payer MEDICARE, SELFPAY ==
[2024-05-15 10:50] VITALS: BP 116/71; PULSE 67; RESP 16; TEMP 36.3; O2SAT 100
--- NOTE | 2024-05-15 11:23 | ED.EAR ---
HPI - Ear Problem General Chief complaint: Ear Stated complaint: EARACHE Time Seen by Provider: 05/15/24 11:23 Source: patient Mode of arrival: ambulatory Limitations: no limitations History of Present Illness HPI Narrative: [age] year female presents complaint of pressure, clogged feeling to bilateral ears for the past 2-3 days. Has felt balance intermittently on standing a few times, regains balance almost immediately. Denies dizziness. Denies nausea vomiting. No headache or sinus pressure. All systems reviewed and negative except as noted above. Related Data Home Medications ?Medication ?Instructions ?Recorded ?Confirmed ?Last Taken ?Type calcium carbonate (Calcium 600) 600 mg PO DAILY 05/08/23 05/15/24 05/24/23 History cholecalciferol (vitamin D3) 50 50 mcg PO BID 05/08/23 05/15/24 05/24/23 History mcg (2,000 unit) capsule terbinafine HCl 250 mg tablet 250 mg PO DAILY 05/15/24 05/15/24 Unknown History Allergies Allergy/AdvReac Type Severity Reaction Status Date / Time cyclobenzaprine (From AdvReac Intermediate Other Verified 05/15/24 10:52 Flexeril) morphine AdvReac Intermediate Migraine Verified 05/15/24 10:52 Review of Systems Review of Systems: CONSTITUTIONAL: Denies fever, chills, or sweats. EYES: Denies visual changes, redness, or discharge. ENT: Denies rhinorrhea, congestion, sore throat. Reports bilateral ear pressure in with clogged feeling. CARDIOVASCULAR: Denies chest pain, palpitations, or edema. RESPIRATORY: Denies cough or dyspnea. GASTROINTESTINAL: Denies abdominal pain, nausea, vomiting, or diarrhea. GENITOURINARY: Denies dysuria or hematuria. SKIN: Denies rash or itching. MUSCULOSKELETAL: Denies back pain, joint pain, or myalgia. NEUROLOGIC: Denies headache, numbness, or weakness. PSYCHIATRIC: Denies anxiety or depression. All other systems reviewed are negative, except as documented in HPI. [facility] Past Medical History Medical History Diet-controlled type 2 diabetes mellitus Hyperlipidemia Hypertension Normal colonoscopy Surgical History Surgical History History of hysterectomy History of loop electrosurgical excision procedure (LEEP) History of surgical removal of ganglion cyst Family History Family History Mother Hypertension, Onset Age: 84 Father Family history of Parkinson's disease Patient's father is Non-Hodgkin lymphoma Sibling Esophageal cancer Hypertension Heart disease Other Family history of arthritis Family history of cardiovascular disease Social History Social History Social History: Surrogate medical decision maker: Leonel Corcoran, spouse. Code status: Full code. Smoking status: Never smoker Second hand tobacco smoke exposure: No Alcohol intake: current Alcohol use details: states maybe 1x per month Substance use: never Substance use type: does not use Lack of Transportation: No Lack of Food: Never True Current Housing: I Have Housing Concerned About Future Housing: No Difficulty Paying Gas/Electric Bills: No Difficulty Paying for Meds: No Currently Unemployed: No Education: High School Diploma/GED Difficulty w/ Childcare or Family Care: No Living arrangements: with family Additional living arrangements comments: Lives with spouse in [place]. Additional occupation/education comments: Retired. Spiritual care concerns: No Comments At time of signature, agree with nursing past medical, surgical, social and family history. There is no relevant family history pertinent to the presenting complaint. Exam Narrative: GENERAL: This is a well-nourished, well-developed patient, in no apparent distress. HEAD: normocephalic, atraumatic. EYES: PERRL. Sclera clear/white. Vision is grossly intact. EARS: External ears normal, auditory canals clear and without drainage, wound to bilateral TMs with mild erythema. Bulging to TMs but no perforation bilaterally. Hearing grossly intact. NOSE: External nose normal with no obvious nasal discharge, nares without redness, no rhinorrhea. THROAT: Mucous membranes moist, posterior pharynx clear. NECK: Neck supple, non-tender without lymphadenopathy, masses or thyromegaly. CARDIOVASCULAR: Regular rate and rhythm without murmurs, gallops, or rubs. RESPIRATORY: Clear to auscultation. Breath sounds equal bilaterally. No wheezes, rales, or rhonchi. SKIN: warm, Dry, intact with no suspicious lesions or rash, good texture and turgor. NEURO: awake, alert, and oriented to person, place and time. There were no obvious focal neurologic abnormalities. EXTREMITIES: No joint tenderness, effusion, or edema noted. Course Course Level of Care: Express Care Visit Vital Signs Vital signs: Vital Signs Temperature 36.3 C L 05/15/24 10:50 Pulse Rate 67 05/15/24 10:50 Respiratory Rate 16 05/15/24 10:50 Blood Pressure 116/71 05/15/24 10:50 Pulse Oximetry 100 05/15/24 10:50 Oxygen Delivery Room Air 05/15/24 10:50 Temperature 36.3 C L 05/15/24 10:50 Pulse Rate 67 05/15/24 10:50 Respiratory Rate 16 05/15/24 10:50 Blood Pressure 116/71 05/15/24 10:50 Pulse Oximetry 05/15/24 10:50 Oxygen Delivery Room Air 05/15/24 10:50 Reviewed Medical Decision Making MDM Narrative Medical decision making narrative: Will treat patient's symptoms, exam findings with antibiotic, antihistamine and Medrol Dosepak. Patient agrees with plan of care. Patient is aware of diagnosis, understands and agrees to treatment plan. Anticipatory guidance given. Patient agrees to follow-up as directed and is aware of reasons to seek care at the emergency department. Portions of this record may have been created with voice recognition software Vital Signs Vital Signs: Vital Signs Temperature 36.3 C L 05/15/24 10:50 Pulse Rate 67 05/15/24 10:50 Respiratory Rate 16 05/15/24 10:50 Blood Pressure 116/71 05/15/24 10:50 Pulse Oximetry 05/15/24 10:50 Oxygen Delivery Room Air 05/15/24 10:50 Temperature 36.3 C L 05/15/24 10:50 Pulse Rate 67 05/15/24 10:50 Respiratory Rate 16 05/15/24 10:50 Blood Pressure 116/71 05/15/24 10:50 Pulse Oximetry 05/15/24 10:50 Oxygen Delivery Room Air 05/15/24 10:50 Discharge Plan Discharge Clinical Impression: Acute serous otitis media of both ears Patient Disposition: Home, Self-Care Condition: Stable Instructions: Antibiotic Form, Fluid In The Ear (Serous Otitis Media) (ED) Additional Instructions: Take medications as prescribed. Take ibuprofen or Tylenol every 6-8 hours as needed for pain. Drink at least 64 oz of water a day. Follow-up with your primary care physician if symptoms are not improving. Patient Language: Wolof Prescriptions: New amoxicillin 875 mg tablet 875 mg PO Q12H 10 Days Qty: 20 0RF methylprednisolone [Medrol (Nestor)] 4 mg tablets,dose pack See Rx Instructions PO .COMPLEX Qty: 21 0RF Rx Instructions: orally per package directions fluticasone propionate [Flonase Allergy Relief] 50 mcg/actuation spray,suspension 1 spray intranasal BID Qty: 16 0RF Rx Instructions: administer into each nostril cetirizine 10 mg capsule 10 mg PO DAILY Qty: 30 0RF No Action terbinafine HCl 250 mg tablet 250 mg PO DAILY cholecalciferol (vitamin D3) 50 mcg (2,000 unit) capsule 50 mcg PO BID calcium carbonate [Calcium 600] 600 mg calcium (1,500 mg) tablet 600 mg PO DAILY (DME) lancets [CareSens Lancets] 30 gauge misc See Rx Instructions .Route Qty: 200 12RF Rx Instructions: once daily (DME) blood-glucose meter [Accu-Chek Guide Glucose Meter] Misc See Rx Instructions .ROUTE .MEDSUPPLY Qty: 1 0RF Rx Instructions: test blood sugars once daily (DME) Accu-Chek Guide test strips Strip See Rx Instructions .ROUTE .MEDSUPPLY Qty: 400 12RF Rx Instructions: 3 times daily (DME) Easy Touch Safety Lancets 32 gauge misc See Rx Instructions .Route Qty: 400 12RF Rx Instructions: 3 times a day diclofenac potassium 50 mg tablet 50 mg PO BID Qty: 30 1RF Rx Instructions: Take with food pravastatin 40 mg tablet See Rx Instructions .ROUTE .COMPLEX Qty: 90 3RF Dose Instruction: Take 1 tablet by mouth once daily Rx Instructions: Take 1 tablet by mouth once daily lisinopril 10 mg tablet See Rx Instructions .ROUTE .COMPLEX Qty: 100 1RF Dose Instruction: TAKE 1 TABLET BY MOUTH DAILY Rx Instructions: TAKE 1 TABLET BY MOUTH DAILY alendronate 70 mg tablet See Rx Instructions .ROUTE .COMPLEX Qty: 12 0RF Dose Instruction: Take 1 tablet by mouth once a week Rx Instructions: Take 1 tablet by mouth once a week Follow-up/Referrals: Cindy,SUKI Boucher [Primary Care Provider] - Time of Disposition: 11:33
== END 2024-05-15 11:45 | disposition home or self-care (01) ==
PROVIDERS: Emergency Provider Nurse Practitioner Family; PCP Physician Assistant
DX: H65.03 Acute serous otitis media, bilateral (principal); E11.9 Type 2 diabetes mellitus without complications; I10 Essential (primary) hypertension; E78.5 Hyperlipidemia, unspecified
CPT/HCPCS: 99213; G0463

== ENCOUNTER 2024-06-09 08:49 | Outpatient (CLI) | payer MEDICARE, SELFPAY ==
--- NOTE | ~2024-06-09 | CT_ITS ---
Non-contrast CT scan of the Abdomen and Pelvis Clinical indication: Adrenal nodule Technique: 2.5 mm axial scans were obtained through the abdomen and pelvis without intravenous or or al contrast. Dose reduction technique was used on this scan by utilizing automated exposure control a nd iterative reconstruction technique. The dose-length product (DLP) was 519.39 mGy-cm. Findings: Images through the lung bases reveal no abnormalities. There is no evidence of renal or ureteral calculi. The kidneys and the ureters are nondilated. The liver, spleen, pancreas, gallbladder, and right adrenal gland appear normal. 2.1 cm low-density l eft adrenal nodule is consistent with adenoma. There is no aortic aneurysm. There is no evidence of bowel obstruction. Images through the pelvis were performed. There is no evidence of ascites or lymphadenopathy. Urinary bladder unremarkable. No pelvic mass seen. Status post hysterectomy. No ascites. Impression: 2.1 cm left adrenal adenoma. Reviewed, dictated and finalized at [facility]. AL FUND MANAGER Impression: 2.1 cm left adrenal adenoma.
== END 2024-06-09 08:50 | disposition home or self-care (01) ==
PROVIDERS: PCP Physician Assistant; Visit Provider Internal Medicine
DX: E27.8 Other specified disorders of adrenal gland (principal); D35.02 Benign neoplasm of left adrenal gland
CPT/HCPCS: 74176

== ENCOUNTER 2024-12-20 09:46 | Outpatient (CLI) | payer MEDICARE, SELFPAY ==
--- NOTE | ~2024-12-20 | DEXA_ITS ---
Bone Density Report Name: JULIÁN KATZ Age: 69 Sex: Female Ethnicity: White Date of : 1955 Indication: postmenopausal; screening for osteoporosis; parental hip fracture; height loss; hysterectomy; Referring Provider: EVELIO ANDINO Study: Bone densitometry was performed. Exam Date: December 20, 2024 Accession number: [id number] Bone Density: Region BMD T-score Z-score Classification AP Spine(L1-L4) 0.952 -0.9 1.1 Normal Femoral Neck (Left) 0.743 -1.0 0.7 Normal Total Hip (Left) 0.887 -0.4 0.9 Normal Femoral Neck (Right) 0.749 -0.9 0.8 Normal Total Hip (Right) 0.861 -0.7 0.7 Normal Total Hip Mean 0.874 -0.6 0.8 Normal World Health Organization criteria for BMD impression classify patients as: Normal (T-score at or above -1.0), Osteopenia (T-score between -1.0 and -2.5), or Osteoporosis (T-score at or below -2.5). 10-year Fracture Risk: FRAX not reported because: All T-scores for Spine Total, Hip Total, Femoral Neck at or above -1.0 Clinical Information Provided by Patient: Parent has had a hip fracture Has used the following medications: Vitamin D, Calcium Has the following medical conditions: Hysterectomy Patient maximum height was 66 Menopause Age: 46 Onset of menses at age 14 Number of children 2 Impression: The patient has normal bone mass. The patient has risk factors, including: parental hip fracture. Discussion: BONE DENSITY IS ABOVE THE MINIMUM DESIRABLE LEVEL AT ALL SKELETAL SITES TESTED. This patient?s bone mineral density is above the minimum desirable level (T-score -1.0 or better) at all sites measured. The patient should follow a healthful lifestyle (good nutrition with adequate calcium and vitamin D, and appropriate weight-bearing exercise). Follow-Up: Consider repeating this study in 5 years or sooner if there is some new clinical indication. Reported by: DEANGELO on 12/20/2024 10:34:00 AM. Reviewed, dictated and finalized at location A.
--- OUTSIDE RECORDS SUMMARY | 2024-12-20 10:11 | XMS_ITS | Clinical Summary ---
Author Organization [facility] Address [address] [place] [id number] Care Team Providers Care Wan Support Specialist Name Role Phone Unavailable Primary Care Provider Unavailabl e Social History Tobacco Use Types Packs/Day Years Used Date Smoking Tobacco: Never Assessed Comments Unknown Sex and Gender Information Value Date Recorded Sex Assigned at Not on file Legal Sex Female 8:25 PM CDT Gender Identity Not on file Sexual Orientation Not on file Plan of Treatment Health Maintenance Due Date Last Done Comments Colorectal Cancer Screening Colonoscopy (10 Years) 1957 Hepatitis C 1975 DTaP, Tdap and Td Vaccines ( 1 - Tdap) 1976 Mammogram Screening 1997 Pneumococcal Vaccine: 50+ Ye ars (1 of 1 - PCV) 2007 Zoster Vaccines (1 of 2) 2007 Dexa Scan (General) 2022 COVID-19 Vaccine ( - 2023-2 5 season) 2024 RSV Immunization or 60+ Years (1 - 1-dose 75+ series) 2032 Meningococcal B Vaccine Aged Out No l onger eligible based on patient's age to complete this topic Meningococcal Vaccine Aged Out No yovany maricel eligible based on patient's age to complete this topic RSV Immunizations Under 20 Months Aged Out No longer eligible based on patient's age to complete this topic
--- OUTSIDE RECORDS SUMMARY | 2024-12-20 10:11 | XMS_ITS | Clinical Summary ---
Author Organization [facility] [address] [facility] [address] [place] [address] Care Team Providers Care Application Security Architect Name Role Phone Citlaly White Unavailable Citlaly White Primary Care Pr ovider Allergies Active Allergy Reactions Criticality Noted Date Comments Aspirin Cyclobenzaprine Other (See comments) Low 07/06/2023 Pt stated the medication made her feel discomfort Erythromycin Hydrocodone-Acetaminophen Ibuprofen Ketorolac Morphine Headache High 05/31/2018 migraine Penicillins Sulfa (Sulfonamide Antibiotics) Sumatriptan Medications cholecalciferol (VITAMIN D-3) 400 unit capsule 1 capsule daily Active calcium carbonate (CALCIUM 600 ORAL) Take by mouth Active cyclobenzaprine (FLEXERIL) 10 mg tablet Take 1 tablet (10 mg total) by mouth nightly at bedtime. 3 Active mupirocin (BACTROBAN) 2 % ointment APPLY TOPICALLY TO THE AFFECTED AREA(S) TWICE DAILY 3 Active predniSONE (DELTASONE) 20 mg tablet Take 1 tablet (20 mg) by mouth 3 Active terbinafine (LamiSIL) 250 mg tablet Take 1 tablet (250 mg total) by mouth daily 3 Active lisinopriL (PRINIVIL,ZESTR IL) 10 mg tablet 3 Active Active Problems Problem Noted Date Diagnosed Date Abnormal findings on diagnostic imaging of alyson humphries 07/09/2020 Abnormal stress test 05/23/2019 Palpitations 05/23/2019 Essential hypertension 05/23/2019 Degeneration of intervertebral disc of cervical region 12/05/2009 Adhesive capsulitis of shoulder 01/23/2009 Surgical History Surgery Date Site/Laterality Comments CERVICAL BIOPSY W/ LOOP ELEC TRODE EXCISION HYSTERECTOMY BLADDER REPAIR 2002 - 05/03/2003 mesh BREAST BIOPSY 07/11/2020 Left Medical History Medical History Date Comments Chest pain Hypertension Family History Medical History Relation Name Comments Esophageal cancer Brother Non-Hodgkin's Lymphoma Father Stroke Mother Rheum arthritis Sister Relation Name Status Comments Brother (Age 67) triple byp ass, cancer, heart attack Father (Age 86) lymphoma, parkinson Mother (Age 85) htn, palp, broken hip Other brother (Age 67) pacemaker, htn, heart transplant, stroke Sister Alive arthritis, lymp tamie, stroke Social History Tobacco Use Types Packs/Day Years Used Date Smoking Tobacco: Never Smokeless Tobacco: Never Tobacco Cessation:Counseling Given: Not Answered Alcohol Use Standard Drinks/Week Comments Never 0 (1 standard drink = 0.6 oz pur e alcohol) AUDIT-C Answer Date Recorded Frequency of Alcohol Consumption Never 05/23/2019 Average Number of Drinks Not on file 020 Frequency of Binge Drinking Not on file 05/05 Comments Unknown Sex and Gender Information Value Date Recorded Sex Assigned at Not on file Legal Sex Female 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 Gender Identity Not on file Sexual Orientation Not on file Obstetrics History Last Filed Vital Signs Vital Sign Reading Time Taken Comments Blood Pressure 138/78 10/10/2021 8:01 AM CDT Pulse 75 10/10/2021 8:01 AM CDT Temperature - - Respiratory Rate - - Oxygen Saturation 96% 10/10/2021 8:01 AM CDT Inhaled Oxygen Concentration - - Weight 72.6 kg (160 lb) 07/20/2024 9:56 AM CDT Height 167.5 cm (5' 5.95) 07/20/2024 9:56 AM CD T Body Mass Index 25.87 07/20/2024 9:56 AM CDT Plan of Treatment Health Maintenance Due Date Last Done Comments Colon Cancer Screening-Colonoscopy 1957 Depression Screening 1957 Fall Risk Assessment 1957 Hepatitis C Screening 1957 Osteoporosis Screening-Bone Density Scan 1957 DTaP/Tdap/Td Vaccine (1 - Tdap) 1968 Hepatitis B Screening 1975 Pneumococcal vaccine 65+ (1 of 1 - PCV) 2007 Well Visit 65+ 2022 Influenza Vaccine (#1) 2025 04/30/2020 Breast Cancer Screening-Mammogram 07/20/2025 07/20/2024, 07/15/2023, 07/14/2022, Additional history exists Zoster Vaccine Completed 03/04/2020, 01/04/2020 Procedures Procedure Name Priority Date/Time Associated Diagnosis Comments SCREENING MAMMOGRAM BILATERAL W ANGEL Schedule Routine, Read Routine (OP Routine) 07/20/2024 10:21 AM CDT Abnormal findings on diagnostic imaging of breast from Last 3 Months or Most Recently Relevant to Health Maintenance Results * Screening Mammogram Bilateral W Angel (07/20/2024 10:21 AM CDT) Anatomical Region Laterality Modality Breast Bilateral Mammography Narrative 07/21/2024 12:04 PM CDT Mammogram Technique: Bilateral Digital Breast Tomosynthesis, Bilateral C-view 2D Screening mammogram. Views obtained: bilateral craniocaudal and bilateral mediolateral oblique. Computer Aided Detection was performed. Mammogram Findings: The present examination has been compared to prior imaging studies performed at [facility] on 07/10/2021, 07/14/2022 and 07/15/2023. The breasts are heterogeneously dense, which may obscure small masses. There is no suspicious abnormality in either breast. Impression: There is no mammographic evidence of malignancy. Annual screening mammography is recommended. If supplemental screening is desired, breast MRI would be recommended in this patient with heterogeneously dense breasts. OVERALL FINAL ASSESSMENT: BI-RADS CATEGORY 1: Negative. Procedure Note Manisha Coon MD - 07/21/2024 Mammogram Technique: Bilateral Digital Breast Tomosynthesis, Bilateral C-view 2D Screening mammogram. Views obtained: bilateral craniocaudal and bilateral mediolateral oblique. Computer Aided Detection was performed. Mammogram Findings: The present examination has been compared to prior imaging studies performed at [facility] on 07/10/2021, 07/14/2022 and 07/15/2023. The breasts are heterogeneously dense, which may obscure small masses. There is no suspicious abnormality in either breast. Impression: There is no mammographic evidence of malignancy. Annual screening mammography is recommended. If supplemental screeningis desired, breast MRI would be recommended in this patient with heterogeneously dense breasts. OVERALL FINAL ASSESSMENT: BI-RADS CATEGORY 1: Negative. Aimee Galvan NP IMG MAMMO PROCEDURES Final Result from Last 3 Months or Most Recently Relevant to Health Maintenance Insurance [facility] Address: [address] [address] [facility] Address: [facility] [address] [place] [address] Care Teams Application Security Architect Relationship Specialty Start Date End Date Citlaly White PA [address] [place] [address] PCP - General Physician Ambulance Operations Supervisor 06/21/24 Citlaly White PA [address] [place] [address] Physician Ambulance Operations Supervisor Physician Ambulance Operations Supervisor 04/14/24
--- OUTSIDE RECORDS SUMMARY | 2024-12-20 10:11 | XMS_ITS | Clinical Summary ---
Author Organization [facility] Address [address] [facility] [place] [address] Care Team Providers Care Rn Clinical Coordinator Name Role Phone Francisco Chaudhary Primary Care Provider [phone] Source Comments [facility],non-owned Affiliates and Associated Physician Practices is amultiple site organization consisting of ambulatory clinics and hospital sitesin [place], [place], [place] and [place]. This disclosure is being madepursuant to the Care Everywhere program and may not contain all information available regarding this patient. Last updated 18.[facility] Allergies Active Allergy Reactions Criticality Noted Date Comments Cyclobenzaprine Other 07/06/2023 Pt stated the medication made her feel discomfort Morphine Headache High 05/31/2018 migraine Medications * Be aware that medications may not be up to date on this document. Alwaysverify current medications with the patient. lisinopril (Prinivil; Zestril) 10 MG tablet 3 Active vitamin D, ergocalciferol, (Drisdol) 1.25 MG (02851 UT) capsule Take 2,000 Units by mouth once daily 3 Active Calcium Carb-Cholecalci ferol (CALCIUM 600-D PO) Take 1,200 mg by mouth once daily Active alendronate (Fosamax) 70 MG tablet Take 1 (one) tablet by mouth every 7 days before meal Take in morning with full glass of water on empty stomach and remain upright for 30 min; Takes on Active pravastatin (Pravachol) 40 MG tablet Take 1 (one) tablet by mouth at bedtime Active terbinafine (LamISIL) 250 MG tablet Take 1 (one) tablet by mouth once daily Active erythromycin (Romycin) 5 MG/GM ophthalmic ointment Apply to incisions on bilateral upper eyelids 2 times a day for the next 2 weeks. 3.5 g 1 4 Active Active Problems Problem Noted Date Diagnosed Date Ptosis, both eyelids 07/06/2023 Essential hypertension 05/23/2019 3 Palpitations 05/23/2019 02/11/2023 Degeneration of intervertebral disc of cervical region 12/05/2009 02/11/2023 Family History Medical History Relation Name Comments Cancer - Esophageal Brother Other - Cardiac Brother Other - Cardiac Mother Arthritis - Rheumatoid Sister Hodgkin's lymphoma Sister Relation Name Status Comments Brother Father Mother Sister Social History Tobacco Use Types Packs/Day Years Used Date Smoking Tobacco: Never Smokeless Tobacco: Never Tobacco Cessation:Counseling Given: Not Answered Alcohol Use Standard Drinks/Week Comments Yes 0 (1 standard drink = 0.6 oz pur e alcohol) occasional Comments Unknown Sex and Gender Information Value Date Recorded Sex Assigned at Not on file Legal Sex Female 6:03 PM CDT Gender Identity Not on file Sexual Orientation Not on file Last Filed Vital Signs Vital Sign Reading Time Taken Comments Blood Pressure 165/87 07/06/2023 9:20 AM SALES CONSULTANT RESIDENTIAL MANAGER Pulse 69 07/06/2023 6:35 AM SALES CONSULTANT RESIDENTIAL MANAGER Temperature 36.4 C (97.5 F) 07/06/2023 9:20 AM SALES CONSULTANT RESIDENTIAL MANAGER Respiratory Rate 15 07/06/2023 6:35 AM SALES CONSULTANT RESIDENTIAL MANAGER Oxygen Saturation 95% 07/06/2023 9:10 AM SALES CONSULTANT RESIDENTIAL MANAGER Inhaled Oxygen Concentration - - Weight 77.1 kg (170 lb) 07/06/2023 6:21 AM SALES CONSULTANT RESIDENTIAL MANAGER Height 167.6 cm (5' 6) 07/06/2023 6:21 AM SALES CONSULTANT RESIDENTIAL MANAGER Body Mass Index 27.44 07/06/2023 6:21 AM SALES CONSULTANT RESIDENTIAL MANAGER Plan of Treatment Health Maintenance Due Date Last Done Comments BONE DENSITY TESTING 1957 COLOGUARD (AGES 45-75) - COLON CA SCREENING 1957 COLON MONITORING 1957 COLONOSCOPY - COLON CA SCREENING 1957 CT COLONOGRAPHY - COLON CA SCREENING 1957 Colorectal Cancer Screening 1957 FIT - COLON CA SCREENING 1957 FLEX SIG - COLON CA SCREENING 1957 HEPATITIS C SCREENING 04/30/1975 DTAP/TDAP/TD VACCINES (1 - Tdap) 1976 PNEUMOCOCCAL VACCINE 50+ (1 of 1 - PCV) 2007 ZOSTER VACCINE (1 of 2) 2007 COVID-19 VACCINE (1 - 2023- season) 2024 DEPRESSION SCREENING 2024 MEDICARE AWV CALENDAR YEAR 2024 INFLUENZA VACCINE (#1) 2025 MAMMOGRAM 07/14/2025 07/15/2023, 07/02, 07/14/2022, Additional history exists SCREENING FOR DIABETES 11/26/2025 , 11/26/2022, 11/26/2022, Additional history exists Respiratory Syncytial Virus (RSV) Vaccine Pt: or over 60 yrs (1 - 1-dose 75+ series) 2032 HEPATITIS B VACCINE Aged Out No longe r eligible based on patient's age to complete this topic HIB VACCINE Aged Out No longer eligi ble based on patient's age to complete this topic HPV VACCINE Aged Out No longer eligi ble based on patient's age to complete this topic MENINGOCOCCAL (Group B) VACCINE SHARED DECISION-MAKING Aged Out No longer eligible based on patient's age to complete this topic MENINGOCOCCAL GROUPS A/C/Y/W VACCINE Aged Out No longer eligible based on patient's age to complete this topic Insurance [facility] MANAGED MEDICARE ADV Care Teams Rn Clinical Coordinator Relationship Specialty Start Date End Date Francisco Chaudhary DO [address] [address] PCP - General Internal Medicine 09/09/23
== END 2024-12-20 09:47 | disposition home or self-care (01) ==
LOC: ANHFOHIMG 09:50
PROVIDERS: PCP Physician Assistant; Visit Provider Internal Medicine
DX: M81.0 Age-related osteoporosis without current pathological fracture (principal); Z86.39 Personal history of other endocrine, nutritional and metabolic disease; E66.9 Obesity, unspecified; E78.00 Pure hypercholesterolemia, unspecified; R79.89 Other specified abnormal findings of blood chemistry; E66.3 Overweight; E11.9 Type 2 diabetes mellitus without complications; E78.5 Hyperlipidemia, unspecified; I10 Essential (primary) hypertension; E27.8 Other specified disorders of adrenal gland
CPT/HCPCS: 77080

== ENCOUNTER 2025-04-03 12:25 | Outpatient (CLI) | payer MEDICARE, SELFPAY ==
--- NOTE | ~2025-04-03 | XR_ITS ---
EXAMINATION: XR ribs BI 3V w CXR 2V, 04/03/2025 12:40 [facility] GRINDER HISTORY: contusion of rib on right side, fell last week on vacation COMPARISON: No comparisons available. Findings: No acute fracture or malalignment. No significant degenerative changes. Soft tissues unremarkable. Impression: No acute fracture or malalignment. Reviewed, dictated and finalized at location P. ERADISH GRINDER Impression: No acute fracture or malalignment.
== END 2025-04-03 12:26 | disposition home or self-care (01) ==
PROVIDERS: PCP Physician Assistant; Visit Provider Physician Assistant
DX: S29.8XXA Other specified injuries of thorax, initial encounter (principal); X58.XXXA Exposure to other specified factors, initial encounter
CPT/HCPCS: 71046; 71110